=== PATIENT | male | born 1965 | race Caucasian/White ===

== ENCOUNTER 2018-10-26 13:51 | Emergency (ER) | payer SELFPAY ==
[~2018-10-26] VITALS: Ht 152.4 cm; Wt 95.3 kg
[2018-10-26 14:06] VITALS: BP 134/95
--- NOTE | 2018-10-26 14:14 | NUR ---
WAIT AT LOBBY.
--- NOTE | 2018-10-26 14:15 | NUR ---
PT TAKEN TO X RAY VIA W/C, ACCOMPANIED BY ASSIST[employer] COACH.
--- NOTE | 2018-10-26 14:58 | NUR ---
PT WAS TAKEN TO BED 07 BY WHEELCHAIR.
--- NOTE | 2018-10-26 15:00 | NUR ---
PT C/O LEFT ANKLE PAIN WITH +2 EDEMA S/P FALL AROUND 5AM THIS MORNING. PATIENT STATES THROBBING PAIN OF 8/10 AT THIS TIME; VSS; PATIENT POSITIONED FOR COMFORT; HOB ELEVATED; BEDRAILS UP X1; BED DOWN. ER MD MADE AWARE OF PT STATUS.
[2018-10-26 15:23] VITALS: BP 127/85
--- NOTE | 2018-10-26 15:23 | NUR ---
Patient discharged with v/s stable. Written and verbal after care instructions given and explained. Patient alert, oriented and verbalized understanding of instructions. Ambulatory with steady gait. All questions addressed prior to discharge. ID band removed. Patient advised to follow up with PMD. Rx of Voltaren Topical Gel and Ibuprofen given. Patient educated on indication of medication including possible reaction and side effects. Opportunity to ask questions provided and answered.
== END 2018-10-26 15:23 | disposition home or self-care (01) ==
LOC: MED 13:51
DX: S93.402A Sprain of unspecified ligament of left ankle, initial encounter (principal); W07.XXXA Fall from chair, initial encounter; Y93.89 Activity, other specified; Y92.89 Other specified places as the place of occurrence of the external cause; Y99.8 Other external cause status
CPT/HCPCS: 73610; 99283